=== PATIENT | male | born 1955 | race Caucasian/White ===

== ENCOUNTER 2019-01-03 14:43 | Observation (INO) | payer OTHER ==
[2019-01-03] MEDS ORDERED: NS 0.9% 1000 ML** 1,000 ML IV ONE ×2 (15:17→18:17)
--- NOTE | 2019-01-03 15:26 | ED ---
Syncope/Near Syncope - HPI Summary HPI Summary: A 63 y/o male presents to [facility] with a chief complaint of a possible syncopal episode at 13:00 today. The patient states that after getting his coffee at lunch he was sitting down in a revolving chair in a [id number] room. He says that he felt like he was having a dreaming episode when he was unconscious, and then he came to on the floor. He says that he woke up and was a little confused. He says that he saw two patients afterwards but had trouble finding things on the computer. He said that before this episode he had some difficulty finding words, which is unusual for him, but notes that his speech seems normal now. Currently he denies any CP, SOB, palpitations, headache, urinary incontinence, numbness or weakness. He notes that he has not had any prior syncopal episodes, but has had a Hx of migraines that sometimes give him visual symptoms. He denies any EtOH use. He was at [employer] today and took no drugs. He has NKDA. He says that his cognition in 100%. - History Of Current Complaint Chief Complaint: EDSyncope Time Seen by Provider: 01/03/19 15:05 Hx Obtained From: Patient Onset/Duration: Sudden Onset, Lasting Minutes, Resolved Context: Unwitnessed, Loss Of Consciousness Activity At Onset: At Rest Associated Head Trauma: No Aggravating Factor(s): Nothing Alleviating Factor(s): Nothing Associated Signs And Symptoms: Negative - CP, SOB, palpitations, numbness, headache or weakness - Allergies/Home Medications Allergies/Adverse Reactions: Allergies Allergy/AdvReac Type Severity Reaction Status Date / Time No Known Allergies Allergy Verified 01/03/19 14:45 Home Medications: Home Medications Escitalopram * [Lexapro 10 mg (NF)] 10 mg PO DAILY 01/03/19 [History Confirmed 01/03/19] Rosuvastatin (NF) [Crestor (NF)] 10 mg PO DAILY 01/03/19 [History Confirmed ] PMH/Surg Hx/FS Hx/Imm Hx Sensory History: Denies: Hx Deafness EENT History: Denies: Hx Deafness Neurological History: Reports: Hx Migraine Infectious Disease History: No Infectious Disease History: Denies: Traveled Outside the [place] in Last 30 Days - Family History Known Family History: Positive: Non-Contributory - Social History Alcohol Use: None Hx Substance Use: No Substance Use Type: Reports: None Hx Tobacco Use: No Smoking Status (MU): Never Smoked Tobacco Review of Systems Negative: Fever Negative: Palpitations, Chest Pain Negative: Shortness Of Breath Negative: incontinence Neurological: Other - positive: LOC, word finding difficulty Negative: Headache, Weakness, Numbness All Other Systems Reviewed And Are Negative: Yes Physical Exam - Summary Physical Exam Summary: GENERAL: Patient is a well-developed and nourished M who is lying comfortable in the stretcher. Patient is not in any acute respiratory distress. HEAD AND FACE: Normocephalic EYES: PERRLA, EOMI x 2. EARS: Hearing grossly intact. MOUTH: Oropharynx within normal limits. NECK: Supple, trachea is midline, no adenopathy, no JVD, no carotid bruit. CHEST: Symmetric, no tenderness at palpation LUNGS: Clear to auscultation bilaterally. No wheezing or crackles. CVS: Regular rate and rhythm, S1 and S2 present, no murmurs or gallops appreciated. ABDOMEN: Soft, non-tender. Bowel sounds are normal. No abnormal abdominal pulsations. EXTREMITIES: Full ROM in all major joints, no edema, no cyanosis or clubbing. NEURO: Alert and oriented x 3. No acute neurological deficits. Speech is normal and follows commands. SKIN: Dry and warm Triage Information Reviewed: Yes Vital Signs On Initial Exam: Initial Vitals Temp Pulse Resp BP Pulse Ox 98.3 F 63 18 137/77 97 01/03/19 14:44 01/03/19 14:44 01/03/19 14:44 01/03/19 14:44 01/03/19 14:44 Vital Signs Reviewed: Yes Diagnostics - Vital Signs Vital Signs Temp Pulse Resp BP Pulse Ox 01/03/19 14:44 98.3 F 63 18 137/77 97 - Laboratory Result Diagrams: 01/03/19 15:28 01/03/19 15:28 Lab Statement: Any lab studies that have been ordered have been reviewed, and results considered in the medical decision making process. - Radiology CXR Radiology Interpretation Completed By: Radiologist Summary of Radiographic Findings: No evidence for acute intrathoracic disease. ED physician has reviewed this imaging report. - CT Head CTA CT Interpretation Completed By: Radiologist Summary of CT Findings: Head CTA impression: 1. No acute occlusive disease, significant stenosis or aneurysm. ED physician has reviewed this imaging report. Neck CTA impression: 1. No acute occlusive disease or significant stenosis. 2. There is a 6 mm groundglass nodule in the right upper lobe for which one-year chest CT. follow-up is recommended. ED physician has reviewed this imaging report. Brain MRI CT Interpretation Completed By: Radiologist Summary of CT Findings: 1. No acute intracranial normality. 2. Trace nonspecific T2 FLAIR hyperintense foci in the periventricular and deep white. matter are most often seen in the setting of migraine headaches or chronic small vessel. ischemic disease. ED physician has reviewed this imaging report. National Institutes Of Health - NIH Scale Level of Consciousness: Alert/Keenly Responsive Ask Patient the Month and His/Her Age: Both Correct Ask Pt to Open/Close Eyes and Construction Field Engineer/Release Non-Paretic Hand: Both Correctly Best Gaze (Only Horizontal Eye Movement): Normal Visual Field Testing: No Visual Loss Facial Paresis-Pt to Smile & Close Eyes or Grimace Symmetry: Normal/Symmetrical Motor Function - Right Arm: No Drift-Holds 10 Seconds Motor Function - Left Arm: No Drift-Holds 10 Seconds Motor Function - Right Leg: No Drift-Holds 10 Seconds Motor Function - Left Leg: No Drift-Holds 10 Seconds Limb Ataxia-Must be out of Proportion to Weakness Present: Absent Sensory (Use Pinprick to Test Arms/Legs/Trunk/Face): Normal Best Language (Describe Picture, Name Items): No Aphasia Dysarthria (Read Several Words): Normal Extinction and Inattention: No Abnormality Total Score: 0 Course/Dx Course Of Treatment: A 63 y/o male presents to [facility] with a chief complaint of a possible syncopal episode at 13:00 today. He said that he was having word finding difficulty in the morning, and does not feel 100% currently. Dr. Gomez evaluated the patient. The physical exam was unremarkable. NIH of 0. Head CTA impression: 1. No acute occlusive disease, significant stenosis or aneurysm. Neck CTA impression: 1. No acute occlusive disease or significant stenosis. 2. There is a 6 mm groundglass nodule in the right upper lobe for which one-year chest CT. follow-up is recommended. CXR impression: No evidence for acute intrathoracic disease. Blood work and chemistries obtained and are WNL. In the ED course the patient was given Sodium Chloride IV and Iohexol IV. Brain MRI impression: 1. No acute intracranial normality. 2. Trace nonspecific T2 FLAIR hyperintense foci in the periventricular and deep white. matter are most often seen in the setting of migraine headaches or chronic small vessel. ischemic disease. Case discussed with hospitalist, Dr. Rucker. I discussed results with patient. The patient agrees with this plan - Diagnoses Provider Diagnoses: Syncope - Physician Notifications Discussed Care of Patient With: Humberto Gomez Time Discussed With Above Provider: 15:08 Instructed by Provider To: MD Will See In ED Discharge - Sign-Out/Discharge Documenting (check all that apply): Patient Departure - admit All imaging exams completed and their final reports reviewed: Yes Patient Received Moderate/Deep Sedation with Procedure: No - Discharge Plan Condition: Fair Disposition: ADMITTED TO [facility] - Billing Disposition and Condition Condition: FAIR Disposition: Admitted to [facility] - Attestation Statements Document Initiated by Scribe: Yes Documenting Scribe: Jeronimo Thomas Provider For Whom Scribe is Documenting (Include Credential): Kayla Olivier MD Scribe Attestation: IJeronimo, scribed for Kayla Olivier MD on 01/04/19 at 1102. Scribe Documentation Reviewed: Yes Provider Attestation: The documentation as recorded by the Jeronimo fairchild accurately reflects the service I personally performed and the decisions made by , Saumya Olivier MD Status of Scribe Document: Viewed Consult Consult: At 15:30 - Discussed case with Dr. Rucker, hospitalist, who accepted the patient for admission.
[2019-01-03 15:35] LABS: ABS Eosinophils 0.1 10^3/ul (0-0.6); ABS Lymphocytes 1.3 10^3/ul (1.0-4.8); ABS Monocytes 0.4 10^3/ul (0-0.8); ABS Neutrophils 5.9 10^3/ul (1.5-7.7); Eosinophil % 0.8 %; Hematocrit 43 % (42-52); Hemoglobin 14.4 g/dL (14.0-18.0); Lymphocyte % 16.9 %; Mean Corpuscular HGB Conc 33 g/dL (31-36); Mean Corpuscular Hemoglobin 31 pg (27-31); Mean Corpuscular Volume 92 fL (80-94); Nucleated Red Blood Cells % 0.1; Platelet Count 196 10^3/uL (150-450); Red Blood Count 4.73 10^6 /uL (4.18-5.48); Red Cell Distribution Width 13 % (10-15); White Blood Count 7.8 10^3/uL (3.5-10.8)
[2019-01-03 15:57] LABS: Albumin 4.4 g/dL (3.2-5.2); Albumin/Globulin Ratio 1.8 (1-3); BUN/Creatinine Ratio 28.4 (8-20); Calcium 9.7 mg/dL (8.6-10.3); EGFR African American 145.4 (>60); EGFR Non-African American 120.2 (>60); Globulin 2.4 g/dL (2-4); HDL Cholesterol 39.5 mg/dL; Magnesium 2.1 mg/dL (1.9-2.7); Potassium 4.3 mmol/L (3.5-5.0); Total Bilirubin 0.5 mg/dL (0.2-1.0); Total Protein 6.8 g/dL (6.4-8.9)
[2019-01-03] MEDS ORDERED: Acetaminophen TAB* 325 MG PO PRN (16:05)
[2019-01-03] MEDS ORDERED: NS 0.9% 1000 ML** 1,000 ML IV SCH (16:15)
[2019-01-03 16:22] LABS: TSH (Thyroid Stimulating Horm) 0.9 mcIU/mL (0.34-5.60)
[2019-01-03] MEDS ORDERED: Iohexol 350* (CONTRAST) 500 ML MDV IV ONE (16:38)
--- NOTE | 2019-01-03 16:47 | CONS ---
CONSULTATION REPORT: DATE OF CONSULT: 01/03/19 PATIENT OF: Dr. Goldberg and Dr. Olivier. HISTORY OF PRESENT ILLNESS: This is a 63-year-old right-handed man who presents with loss of consciousness and altered speech today. He has been in good general health, but when at work this morning at 9, he said he noted difficulty with names and finding words. No one else noticed it, but he noticed it to himself and this persisted throughout the day. The office was not air conditioned. The air conditioning is broken. He had lunch, went for a cup of coffee, and then when he came back shortly before his 1 o'clock patient, he was sitting in the room by himself, and without any visual warning, lightheadedness, or any other symptoms, he apparently lost consciousness and found himself on the floor. There was no loss of urine. No biting tongue. No headache afterwards. He says that when he was down, he felt like he was in a dreamy state, but this is while he was on the floor and not preceding loss of consciousness. He then got up, saw 2 patients, but cognitively his thinking was not quite there and he still had this minor naming issue. He, therefore, came with his to the emergency room. He has had no prior stroke, syncope, seizures, or symptoms suggestive of seizures. He has had a past history of migraines with some associated visual symptoms, but nothing like that today. He has had no numbness or weakness. No chest pain, shortness of breath, or palpitations. He does not smoke, drink, or use drugs. He has some mild depression and hyperlipidemia and he takes a statin and Asclera. I do not have the doses currently. FAMILY HISTORY: Noncontributory. REVIEW OF SYSTEMS: Negative in all 14 spheres. PHYSICAL EXAM: Temperature is 98.3, pulse 63, respirations 18, blood pressure 137/77. I did an NIH Stroke Scale on him at 3:10 and he had an NIH Stroke Scale of 0 including normal speech and comprehension. Cranial nerves II through XII were intact. Fundi were benign. He had full visual becerra. Motor exam revealed normal tone, strength, and coordination. Face intact to light touch. Reflexes 2 and equal, downgoing toes. Chest: Clear. Cardiovascular: Regular rate and rhythm. Abdomen is soft with positive bowel sounds. DIAGNOSTIC STUDIES/LAB DATA: CBC was normal. All other blood work is pending, other than PTT of 33.8. I discussed with Evan that it was somewhat odd that he had this minor subtle speech deficit that he marked himself as being unusual before his passing-out episode. It is hard to know if his collection of symptoms is related. It is conceivable that this could be focal ischemia, but it has been going on for more than 4-1/2 hours and he is not a tPA candidate because of that and he has NIH Stroke Scale of 0. We will be getting a CTA in the near future once his BUN and creatinine are normal. I will be getting an MRI scan because of this as well as get an EEG to screen for seizures. Basically, he had an unexplained loss of consciousness. It is more likely that this represents some sort of syncopal episode. I defer to Dr. Olivier and the hospitalist, who will be admitting for overnight observation, whether there needs to be further cardiac workup other than the telemetry that he will be receiving. He will be getting an echo with bubble study and fasting lipids as well. Once his CTA is complete and does not show bleed, he will be on a baby aspirin. Thank you for sharing his case. [id number]/[facility] #: [id number] ROMINA
--- NOTE | 2019-01-03 20:23 | HP ---
CC: Dr. Gomez; Dr. Goldberg * HISTORY AND PHYSICAL: DATE OF ADMISSION: 01/03/19 PRIMARY CARE PROVIDER: Dr. Goldberg. CHIEF COMPLAINT: Syncope. 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 Later on, he felt little bit "off." He stated that he felt occasionally as if he were in a dream. He went to have lunch and had a cup of coffee and on the way back he was outside and pretty warm. He also felt maybe difficulty finding words and with names. He came back to his office and sat down, felt as if he is going to go "back in a dream again" and then subsequently woke up on the floor. He stated that he did not hurt himself. He must have been unconscious for a couple of minutes. He got up and proceeded to continue to see his patients throughout the afternoon but he had problems with recollections and problems with calculations, difficulty with names and finding words. After he saw all of his patients, he came in to the ED for evaluation. Here he was seen by Dr. Gomez from Neurology, who recommended overnight admission. So far his workup has been unremarkable. The patient is going to be placed on overnight observation on telemetry monitored bed with the diagnosis of syncope. PAST MEDICAL HISTORY: 1. Status post appendectomy remotely. 2. History of elbow surgery remotely. 3. History of left ankle ORIF in 2010. 4. History of spontaneous pneumothorax on the right side while in college. 5. Dyslipidemia. HOME MEDICATIONS: Include: 1. Lexapro 10 mg daily. 2. Rosuvastatin 10 mg daily. ALLERGIES: No known drug allergies. FAMILY HISTORY: Positive for mother with breast cancer and scleroderma, and father with history of Alzheimer's who at age of 96 but he also had history of prostate cancer. Siblings are healthy. SOCIAL HISTORY: The patient denies any tobacco, alcohol, or drug use. He lives with his , who is his surrogate. He is a physician, emergency management specialist. REVIEW OF SYSTEMS: Please see history of present illness. All the remaining 12 systems were reviewed with the patient and were otherwise negative. PHYSICAL EXAMINATION GENERAL: The patient is a very pleasant 63-year-old male who is in no acute distress. Alert, awake, and oriented x3. VITAL SIGNS: Blood pressure of 138/65, heart rate of 55 and regular, respiratory rate 16, oxygen saturation 100% on room air, temperature of 97.7. HEENT: Head: Atraumatic, normocephalic. Eyes: Pupils are equal, reactive to light and accommodation. Oropharynx is clear. Mucosa moist. NECK: Supple. No JVD. No bruits bilaterally. RESPIRATORY: Clear to auscultation bilaterally. CARDIOVASCULAR: Regular rate and rhythm. No murmur. ABDOMEN: Soft, nontender. Bowel sounds are present in all 4 quadrants. EXTREMITIES: There is no edema. Pulses are +2 bilaterally. No clubbing or cyanosis. NEUROLOGIC: Speech clear. Cranial nerves II through XII grossly intact. Motor strength is 5/5 bilaterally. PSYCHIATRIC EVALUATION: Very pleasant, cooperative with evaluation with no evidence of anxiety or depression. DIAGNOSTIC STUDIES/LAB DATA: Laboratory data show white blood cell count 7.8, hemoglobin 14.4, hematocrit 42, and platelets 196. Sodium was 140, potassium was 4.3, chloride 106, carbon dioxide 28, BUN 19, creatinine was 0.67. Liver function tests unremarkable. Hemoglobin A1c 5.9. Lactic acid 1.3, LDL 78, TSH of 0.9. Brain MRI: Impression: "Trace nonspecific T2/FLAIR hyperintense foci in the periventricular and deep white matter, most often seen in the setting of migraine headaches and chronic small vessel ischemic changes." CTA of the head and neck: Impression: "No acute occlusive disease, stenosis, or aneurysm." The neck CTA showed no acute occlusive disease or significant stenosis. There is also a 6 mm ground-glass nodule in the right upper lobe for which chest CT is recommended." The patient's EKG shows sinus bradycardia with heart rate of 51 beats per minute with no ST changes. Portable chest x-ray was unremarkable. ASSESSMENT AND PLAN: 1. Syncope. At this point, today was one of the hottest days of the year. The patient stated that his air conditioning was not working well in his office. He also has elevated BUN and creatinine. It is possible that he just got dehydrated. Nevertheless, the patient is going to be observed on telemetry monitored bed to rule out arrhythmia. Unfortunately, a transthoracic echocardiogram cannot be performed tomorrow due to weekend. So far, his workup is unremarkable. We are still awaiting EEG. Neurology will follow with the patient. 2. For DVT prophylaxis, the patient is going to be placed on Lovenox subcutaneously. 3. For history of depression, Lexapro is going to be continued. 4. Patient's code status is full. His surrogate is his . TIME SPENT: Approximately 55 minutes was spent on admission of this patient, more than half that time was spent [id number] with the patient during the interview and physical exam. [id number]/[facility] #: [id number] ROMINA
[2019-01-04] MEDS ORDERED: Escitalopram * 10 MG TAB PO SCH (09:00)
[2019-01-04 10:23] LABS: Urine Appearance Clear; Urine Bilirubin Negative (Negative); Urine Blood Negative (Negative); Urine Color Yellow; Urine Glucose Negative (Negative); Urine Ketones Negative (Negative); Urine Nitrite Negative (Negative); Urine Protein Negative (Negative); Urine Specific Gravity 1.016 (1.010-1.030); Urine Urobilinogen Negative (Negative)
--- NOTE | 2019-01-04 11:06 | PN ---
Subjective Date of Service: 01/04/19 Interval History: Patient seen this morning, resting doing some office work, otherwise denies any neurological symptoms. Denies any chest pain, weakness, dizziness or dyspnea. Available studies reviewed. EEG report pending. Echo unavailable today. Discussed with Dr. Moctezuma and planing to see him today. Past Medical History: Unchanged from Admission Objective Active Medications: Acetaminophen (Tylenol Tab*) 650 mg PO Q4H PRN PRN Reason: FEVER/PAIN Enoxaparin Sodium (Lovenox(*)) 40 mg SUBCUT Q24H LION Escitalopram Oxalate (Lexapro *) 10 mg PO DAILY [facility] Last Admin: 01/04/19 08:35 Dose: 10 mg Vital Signs - 8 hr 01/04/19 01/04/19 04:00 07:23 Temperature 97.8 F 98 F Pulse Rate 54 56 Respiratory 14 20 Rate Blood Pressure 107/63 112/66 (mmHg) O2 Sat by Pulse 97 98 Oximetry Oxygen Devices in Use Now: None Appearance: awake, alert no distress Eyes: No Scleral Icterus, PERRLA, - - EOMI Ears/Nose/Mouth/Throat: Mucous Membranes Moist Neck: NL Appearance and Movements; NL JVP, Trachea Midline Respiratory: Symmetrical Chest Expansion and Respiratory Effort, Clear to Auscultation Cardiovascular: NL Sounds; No Murmurs; No JVD, RRR, No Edema Abdominal: NL Sounds; No Tenderness; No Distention Extremities: No Edema Neurological: Alert and Oriented x 3, NL Muscle Strength and Tone Result Diagrams: 01/03/19 15:28 01/03/19 15:28 Assess/Plan/Problems-Billing Assessment: 63 y/o male admitted for syncope, unprovoked - Patient Problems (1) Syncope Current Visit: Yes Status: Acute Code(s): R55 - SYNCOPE AND COLLAPSE SNOMED Code(s): 156212150 Comment: - Etiology unclear, I suspect possible vasovgal. However; other etiology should be considered including but not limited to CVA, seizure, TIA's ... - MRI of brain 01/03/19 negative for CVA. - CT Brain 01/03/19 no acute pathology. - CTA head and neck no evidence of stenosis, obstruction or aneurysm. - EEG formal report pending. - Echo with bubble study will be ordered for outpatient. Will place him on baby aspirin pending the Echo completions - B12/TSH normal. - Lyme titer and tick born panel PCR Pending. (2) Hyperlipidemia Current Visit: Yes Status: Acute Code(s): E78.5 - HYPERLIPIDEMIA, UNSPECIFIED SNOMED Code(s): 47341104 Comment: - Resme rosuvastatin at home (3) DVT prophylaxis Current Visit: Yes Status: Acute Code(s): Z29.9 - ENCOUNTER FOR PROPHYLACTIC MEASURES, UNSPECIFIED SNOMED Code(s): 941042465 Comment: - Low risk, early ambulations
[2019-01-04 11:45] VITALS: BP 118/73
--- NOTE | 2019-01-04 12:54 | CONS ---
NEUROLOGY FOLLOWUP CONSULTATION NOTE: DATE OF CONSULT: 01/04/19 HOSPITALIST: Dr. Ngo. LOCATION: He is inpatient in room 440. CHIEF COMPLAINT: Episode of loss of consciousness. 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 I went over the details of the event yesterday that brought him to the hospital. Today, he feels well. There are no problems with headache and he does have a history of infrequent migraines. Medications are reviewed. He is on Lexapro 10 mg p.o. daily, Lovenox 40 mg subcutaneous daily, p.r.n. Tylenol. He has been afebrile throughout his hospital stay, heart rate is running in the 50s, most recent blood pressure recorded is 118/73. Laboratory data is reviewed. He had a normal CBC on admission and normal chemistry profile other than a somewhat elevated BUN to creatinine ratio and a hemoglobin A1c of 5.9%. His MRI was reviewed. There are a few punctate areas of nonspecific white matter changes seen in the hemispheres bilaterally. There is no evidence of infarctions or hemorrhages. His EKG on admission just revealed some sinus bradycardia. EEG was reviewed by Dr. Gomez, interpreted as normal. I reviewed it as well and I feel it is normal also. 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 He had some very brief disorientation which lasted just a couple of minutes, which typically would be longer after a seizure. He has no risk factors for seizures which I have reviewed with him. He is not on any medications that would increase likelihood of seizures. It was very hot yesterday and his air conditioner in his office was not functioning. I think he could be discharged to home. My understanding is there is a plan for outpatient transthoracic echocardiogram with bubble study. If he has recurrence of events, he will need to be re-evaluated. [id number]/[facility] #: [id number] ROMINA
--- NOTE | 2019-01-04 14:40 | DS ---
DISCHARGE SUMMARY: DATE OF ADMISSION: 01/03/19 DATE OF DISCHARGE: 01/04/19 DISCHARGE DIAGNOSES: 1. Syncope, most likely vasovagal versus seizures, possible dehydration. 2. History of hyperlipidemia. HOSPITAL COURSE: The patient presented to [facility] on 01/03/19 after he had a brief epi sode of what appeared to be a syncopal episode while at work in the office, exacerbated by excessive heat. Apparently as per the documentation on admission and interviewing the patient this morning, he did have some difficulty focusing when his morning started; however, he went through his day as norm al and usual, and shortly before back from his lunch break, he felt kind of unusual feeling as if he was going back into a dream state. Close to but not definitive about 5 minutes to 1, he was in his o ffice, and as soon as he has felt that feeling coming onto him with dreaming, next thing he remembere d waking up on the floor without any obvious trauma by himself. He was able to get himself reoriente d fairly quickly, was dazzled of what could have happened, how he ended up on the floor. Nonetheless , he did return to work, but with some difficulty in focusing and performing his activity with comput er skills and asking questions; therefore, after seeing about 2 patients in the early afternoon sessi on, contacted his PCP and advised him to report to the emergency room. In the emergency room, he was admitted to the medical service. He was placed on tele. His tele revealed sinus rhythm with sinus bradycardia. No abnormal rhythm. No underlying atrial fibrillation, ventricular tachycardia, or any bigeminy or trigeminy. His vitals were fairly unremarkable with blood pressure ranging between 120/ 65 and 107/63, saturation 99%, temperature 98.1. His initial workup revealed unremarkable CBC, chemi stry unremarkable with normal electrolytes, potassium, and magnesium, TSH was 0.9, B12 of 575, unrema rkable UA. He was seen and evaluated as well with Neurology with Dr. Gomez in the emergency room, who recommended to have MRI of the brain, CTA head and neck, which were done and were fairly unremark able. EEG was performed, discussed the results with Dr. Moctezuma, which was negative for any epilepti form. I did see and evaluate the patient this morning. He is in good spirit and denies any complain t. Available results reviewed, discussed with the patient. The only thing I would recommend to have is echo with bubble study. Unfortunately, we will not be able to perform it as an inpatient, hence t he patient agreed and I do concur it can be done as an outpatient. At this time, I deemed the patien t stable to be discharged with further outpatient followup recommendations as below. PHYSICAL EXAMINATION: Vital Signs: Temperature 98.1, pulse 57, respiratory rate 18, satting 99%, bl ood pressure 118/73. General: He is awake, alert, oriented, pleasant. Head and Neck: Normocephali c, atraumatic. Supple. Anicteric sclerae. Extraocular muscles intact. Lungs: Clear to auscultatio n bilaterally. Cardiovascular: S1, S2. Bradycardic. Abdomen: Positive bowel sounds. Soft, nonten leila, nondistended. Extremities: No edema. FINANCIAL ADVISER: No motor or focal sensory deficit. DIAGNOSTIC STUDIES/LAB DATA: CBC, chemistry, troponin negative. B12 of 575. TSH 0.99. LDL 78. Imaging: CTA of the head and neck: No occlusion, aneurysm, obstruction, or stenosis. Brain MRI: No acute infarct. Chest x-ray: Fairly unremarkable. CT of the brain: No acute infarct or bleed. Chest x-ray and CT of the head show ground-glass appearance on his chest, an incidental finding, odin mmend followup as outpatient. DISCHARGE MEDICATIONS: 1. Aspirin 81 mg daily. 2. Rosuvastatin 10 mg daily. 3. Baby aspirin 81 mg daily until echo with bubble study performed. 4. Lexapro 10 mg daily. DISCHARGE RECOMMENDATIONS: 1. Follow up with primary care in 1 to 2 weeks. 2. Recommended followup with outpatient echo with bubble study. I also messaged to the primary, [facility] outpatient event monitoring to rule out any underlying cardiac arrhythmia that could have prec ipitated his syncope, although none was detected while inpatient; however, outpatient Holter or event monitor is also warranted. 3. The patient is to follow up with Neurology and Cardiology p.r.n. at his own discretion, but I do recommend having outpatient Holter or event monitor for ruling any sudden cardiac arrhythmia that was not elicited or precipitated or captured while inpatient. DISCHARGE DISPOSITION: Home. DISCHARGE CONDITION: Stable. [id number]/[facility] #: [id number]
[2019-01-04] MEDS ORDERED: Enoxaparin(*) 40 MG/0.4 ML SYR SUBCUT SCH (18:00)
[2019-01-06 22:53] LABS: Anaplasma phagocytophilum Negative (Negative); B. miyamotoi PCR, B Negative (Negative); Babesia divergens/MO-1 Negative (Negative); Babesia ducani Negative (Negative); Ehrlichia chaffeensis Negative (Negative); Ehrlichia ewingii/canis Negative (Negative); Ehrlichia muris eauclairensis Negative (Negative)
== END 2019-01-04 12:45 | disposition home or self-care (01) ==
LOC: ED 14:43 → MEDTELE 16:05
PROVIDERS: ADMIT Internal Medicine; ATTEND Internal Medicine
DX: R55 Syncope and collapse (principal); E78.5 Hyperlipidemia, unspecified; Z79.82 Long term (current) use of aspirin; Z79.899 Other long term (current) drug therapy; Z87.09 Personal history of other diseases of the respiratory system; R00.1 Bradycardia, unspecified
CPT/HCPCS: 36415; 70496; 70498; 70551; 71045; 80053; 80061; 81003; 82607; 83036; 83605; 83735; 84443; 84484; 85025; 85730; 86618; 87798; 93005; 95816; 96360; 96361; 99284; G0378; Q9967